=== PATIENT | female | born 1970 | race Caucasian/White ===

== ENCOUNTER 2020-08-06 15:53 | Emergency (ER) | payer OTHER, SELFPAY ==
[2020-08-06 16:04] VITALS: BP 131/90; PULSE 93; RESP 18; TEMP 36.4; O2SAT 99
--- NOTE | 2020-08-06 16:19 | ED.GENADULT ---
HPI - General Adult General Chief complaint: Urogenital-Female Stated complaint: poss yeast infection Time Seen by Provider: 08/06/20 16:23 Source: patient and RN notes reviewed Mode of arrival: ambulatory Limitations: no limitations History of Present Illness HPI narrative: 49 year old female who presents to [facility] with complaints of 2-3 weeks duration of perineal irritation and itching with odorous vaginal discharge. Patient states that she treated self with Monistat which made it worse with more irritation in perineal area since using. Patient states that she has history of having bacterial vaginosis and also UTI's. Patient denies any pain with urination or any suprapubic pain or CVA tenderness, denies any fevers, chills or sweats or any nausea or vomiting. Patient denies any concern for STD exposure. Patient also states that she has history of kidney stones in the past with previous lithotripsy, denies any abdominal or flank pain. MD complaint: vaginal discharge and UTI symptoms Onset (ago): week(s) (2-3) Radiation: non-radiation Severity: moderate Severity scale (1-10): 7 Quality: burning Pain Consistency: constant Relieving factors: none Exacerbating factors: movement Associated symptoms: other (cloudy urine) Treatments prior to arrival: other (Monistat made worse) Related Data Allergies Allergy/AdvReac Type Severity Reaction Status Date / Time No Known Allergies Allergy Verified 08/06/20 16:18 Review of Systems Review of Systems: Narrative: CONSTITUTIONAL: Denies fever, chills, or sweats. EYES: Denies visual changes, redness, or discharge. ENT: Denies rhinorrhea, congestion, sore throat, or otalgia. CARDIOVASCULAR: Denies chest pain, palpitations, or edema. RESPIRATORY: Denies cough or dyspnea. GASTROINTESTINAL: Denies abdominal pain, nausea, vomiting, or diarrhea. GENITOURINARY:Positive for dysuria or hematuria. SKIN: Denies rash or itching, states some perineal itching. MUSCULOSKELETAL: Denies back pain, joint pain, or myalgia. NEUROLOGIC: Denies headache, numbness, or weakness. PSYCHIATRIC: Denies anxiety or depression. All systems reviewed & are unremarkable except as noted in HPI and below PMFSH Past Medical History Medical History (Updated 08/08/20 @ 19:48 by Kami Cartagena NP) Bacterial vaginosis Kidney stone Urinary tract infection Surgical History Surgical History (Updated 08/06/20 @ 16:45 by Kami Cartagena NP) H/O lithotripsy Family History Family History (Updated 08/08/20 @ 19:27 by Kami Cartagena NP) Other No significant family history Social History Social History (Updated 08/08/20 @ 19:27 by Kami Cartagena NP) Smoking packs per day: 0.5 Smoking cigarettes per day: 10.0 Years smoked: 20 Smoking pack-years: 10.00 Smoking status: Current every day smoker Tobacco type: cigarettes Alcohol intake: unknown Substance use: never Living arrangements: with family Gender identity (if verbalized by the patient): Female Comments At time of signature, agree with nursing past medical, surgical, social and family history. There is no relevant family history pertinent to the presenting complaint Exam Const: General: healthy appearing, no acute distress and alert Nutritional Appearance: well nourished Orientation/consciousness: patient oriented x3 HENMT: Head: normal to inspection Ears: external ears normal and TM's normal bilaterally General nose exam: Normal nares present Face and sinus: normal facial exam Teeth and gingiva: dentition normal Throat: posterior oropharynx normal and uvula midline Eyes: Conjunctivae: conjunctivae normal Pupils: Equal, round and reactive pupils present EOM: EOMs intact bilaterally Neck: Neck: normal visual inspection and no lymphadenopathy Chest: Chest palpation & inspection: normal inspection of the chest Resp: Effort & Inspection: normal respiratory effort Auscultation: clear to auscultation bilaterally Cardio:
== END 2020-08-06 16:50 | disposition home or self-care (01) ==
PROVIDERS: Emergency Provider Registered Nurse
DX: N76.0 Acute vaginitis (principal); N39.0 Urinary tract infection, site not specified; F17.210 Nicotine dependence, cigarettes, uncomplicated
CPT/HCPCS: 81003; 87077; 87086; 87088; 87186; 99213; G0463